=== PATIENT | male | born 1940 | race Caucasian/White ===

== ENCOUNTER 2019-11-08 05:31 | Outpatient (CLI) | payer MEDICARE, OTHER ==
[2019-11-08 14:00] LABS: Hemoglobin 15.9 g/dL (14.0-18.0)
[2019-11-08 14:13] LABS: Anion Gap 12 mmol/L (10-20); BUN (Urea Nitrogen) 33 mg/dL (8.4-25.7); Calc. Creatinine Clearance 0 mL/min (70-130); Calcium 10.1 mg/dL (7.8-10.44); Carbon Dioxide 28 mmol/L (23-31); Chloride 104 mmol/L (98-107); Estimated GFR-MDRD 35; Glucose 130 mg/dL (83-110); Potassium 5.2 mmol/L (3.5-5.1); Sodium 139 mmol/L (136-145)
[2019-11-09 14:45] LABS: SARS-CoV-2 MS2 Positive; SARS-CoV-2 N Gene Negative; SARS-CoV-2 S Gene Negative; SARS-CoV-2 by NAA Not Detected (NotDetected); SARS-CoV-2 orf1ab Negative
== END 2019-11-08 05:32 | disposition home or self-care (01) ==
LOC: LABBT 05:31
PROVIDERS: ATTEND Otolaryngology Plastic Surgery within the Head & Neck
DX: Z01.818 Encounter for other preprocedural examination (principal); Z11.59 Encounter for screening for other viral diseases; K11.1 Hypertrophy of salivary gland; R22.1 Localized swelling, mass and lump, neck
CPT/HCPCS: 80048; 85014; 85018; 93005; U0003; 87635; 93010

== ENCOUNTER 2019-11-13 07:23 | Day surgery (SDC) | payer MEDICARE ==
[2019-11-11 09:12] VITALS: BMI 29.0
[2019-11-13] MEDS ORDERED: Lidocaine 1% w/Epinephrine 1:100K 20 ML VIAL ONE (09:33)
[2019-11-13] MEDS ORDERED: Bacitracin Zinc Ointment 30 gm TUBE ONE (09:33)
[2019-11-13] MEDS ORDERED: Fentanyl 250 MCG/5 ML VIAL ONE (09:48)
[2019-11-13] MEDS ORDERED: PHENYLEPHRINE-NS 100 MCG/ML 10 ML SYRINGE ONE (10:35)
[2019-11-13] MEDS ORDERED: Succinylcholine Chloride 20 MG/ML 10 ml SYRINGE FS ONE (10:35)
[2019-11-13] MEDS ORDERED: Dexamethasone 20 MG/5 ML VIAL ONE (10:35)
[2019-11-13] MEDS ORDERED: PROPOFOL 200 MG/20 ML VIAL ONE (10:35)
[2019-11-13] MEDS ORDERED: Lidocaine 1% PF 5 ML VIAL ONE (10:35)
[2019-11-13] MEDS ORDERED: EPHEDRINE 25 MG/5 ML SYRINGE ONE (10:35)
[2019-11-13] MEDS ORDERED: Ondansetron PF 4 MG/2 ML Vial ONE (10:35)
[2019-11-13] MEDS ORDERED: Rocuronium Bromide 10 MG/ML (10ML VIAL) ONE (10:35)
[2019-11-13] MEDS ORDERED: Fentanyl 100 MCG/2 ML VIAL ONE ×2 (12:45→13:27)
[2019-11-13] MEDS ORDERED: Hydrocodone-Acetamin 15 ML UDCUP ONE (15:19)
--- NOTE | 2019-11-14 18:03 | OP ---
DATE OF PROCEDURE: 11/13/2019 PREOPERATIVE DIAGNOSIS: Right parotid gland mass. POSTOPERATIVE DIAGNOSIS: Right parotid gland mass. PROCEDURE PERFORMED: Right superficial parotidectomy with intraoperative facial nerve monitoring. ESTIMATED BLOOD LOSS: 20 mL. COMPLICATIONS: None. ANESTHESIA: GETA. DESCRIPTION OF PROCEDURE: The patient was taken to the operating room and placed supine on the table. General endotracheal anesthesia was obtained by the Anesthesia Staff. Tube was secured in the left lower lip. A shoulder roll was placed and the patient's head was turned in gentle extension exposing the right parotid gland and the right neck area. Following this, the patient was prepped and draped in standard surgical fashion. Following this, 8 mL of 1% lidocaine with 1:100,000 epinephrine was injected into the anticipated modified José Miguel incision line. Following this, an incision was made using a 15 blade through skin and subcutaneous tissue. A fat up and fat down flap were elevated over the parotid gland area and then was extended to a subplatysmal layer over the neck. Following this, the gland was released from the sternocleidomastoid muscle. It was noted that the mass was two separate masses, one in the midportion of the parotid extending into the tail of the parotid and a second much lower extending almost into the submandibular area. There is excessive scar tissue in this area and portions of the sternocleidomastoid muscle fibers were removed along with the mass. Following this, the mass was elevated and dissection was carried down the tragal cartilage into the stylomastoid foramen. The facial nerve was identified and was dissected laterally until the superior division and inferior division was identified. Dissecting along the inferior division, freed the mass from this area. The inferior marginal mandibular nerve and lower facial nerves were adherent to the masses as there was excessive scar tissue connecting the two masses. Careful dissection preserved the lower facial branches while removing the masses. The lower facial nerve division was strictly adherent to the parotid gland masses. Following this, a normal cuff of tissue was allowed to be removed around the superior portions of the masses and the masses were removed and sent for pathological analysis. Following this, the wound was irrigated. Hemostasis was obtained and the wound was closed after a drain was placed. The stitches used were 3-0 Monocryl, 4-0 Monocryl stitches and 4-0 and 5-0 Prolene stitches were placed to close the skin. Prior to beginning the procedure, the facial nerve monitor was inserted into the orbicularis oculi and orbicularis francis muscles. The facial nerve monitor was turned on at the beginning of the procedure and remained on with an observer throughout the procedure. The patient tolerated the procedure well. Job ID: [id number]
== END 2019-11-13 16:05 | disposition home or self-care (01) ==
LOC: SDC 07:23
PROVIDERS: ATTEND Otolaryngology Plastic Surgery within the Head & Neck
PROC: 0CB80ZZ Excision of Right Parotid Gland, Open Approach (ICD-10-PCS; principal; 2019-11-13)
DX: D11.0 Benign neoplasm of parotid gland (principal); I12.9 Hypertensive chronic kidney disease with stage 1 through stage 4 chronic kidney disease, or unspecified chronic kidney disease; E11.22 Type 2 diabetes mellitus with diabetic chronic kidney disease; N18.3 Chronic kidney disease, stage 3 (moderate); E78.5 Hyperlipidemia, unspecified; I25.2 Old myocardial infarction; K21.9 Gastro-esophageal reflux disease without esophagitis; I25.10 Atherosclerotic heart disease of native coronary artery without angina pectoris; F17.200 Nicotine dependence, unspecified, uncomplicated; Z79.82 Long term (current) use of aspirin; Z79.899 Other long term (current) drug therapy; Z90.5 Acquired absence of kidney
CPT/HCPCS: 88307; J1100; J2405; J2704; J3010

== ENCOUNTER 2020-10-21 08:59 | Day surgery (SDC) | payer MEDICARE ==
[2020-10-20 15:05] VITALS: BMI 27.3
[2020-10-21] MEDS ORDERED: Bacitracin Zinc Ointment 30 gm TUBE ONE (10:58)
[2020-10-21] MEDS ORDERED: Lidocaine 1% w/Epinephrine 1:100K 20 ML VIAL ONE (10:58)
[2020-10-21] MEDS ORDERED: Fentanyl 100 MCG/2 ML VIAL ONE ×2 (12:24→14:41)
[2020-10-21] MEDS ORDERED: Lidocaine 4% Topical Sol 50 ML BOT ONE (13:01)
[2020-10-21] MEDS ORDERED: Phenylephrine 10 MG/ML VIAL ONE (13:06)
[2020-10-21] MEDS ORDERED: Succinylcholine 200 MG/10 ml SYRINGE FS ONE (13:08)
[2020-10-21] MEDS ORDERED: Lidocaine 1% PF 5 ML VIAL ONE (13:08)
[2020-10-21] MEDS ORDERED: PROPOFOL 200 MG/20 ML VIAL ONE (13:08)
[2020-10-21] MEDS ORDERED: Ondansetron PF 4 MG/2 ML Vial ONE (13:08)
[2020-10-21] MEDS ORDERED: PHENYLEPHRINE-NS 100 MCG/ML 10 ML SYRINGE ONE (13:08)
[2020-10-21] MEDS ORDERED: ePHEDrine Sulfate 50 MG/10 ML VIAL ONE (13:08)
== END 2020-10-21 17:51 | disposition home or self-care (01) ==
LOC: SDC 08:59
PROVIDERS: ATTEND Otolaryngology Plastic Surgery within the Head & Neck
PROC: 0CB80ZZ Excision of Right Parotid Gland, Open Approach (ICD-10-PCS; principal; 2020-10-21)
DX: D11.0 Benign neoplasm of parotid gland (principal); I25.2 Old myocardial infarction; E78.00 Pure hypercholesterolemia, unspecified; I25.10 Atherosclerotic heart disease of native coronary artery without angina pectoris; I12.9 Hypertensive chronic kidney disease with stage 1 through stage 4 chronic kidney disease, or unspecified chronic kidney disease; E11.22 Type 2 diabetes mellitus with diabetic chronic kidney disease; N18.30 Chronic kidney disease, stage 3 unspecified; K59.09 Other constipation; K21.9 Gastro-esophageal reflux disease without esophagitis; H69.80 Other specified disorders of Eustachian tube, unspecified ear; Z79.82 Long term (current) use of aspirin; Z79.899 Other long term (current) drug therapy; Z98.890 Other specified postprocedural states; Z90.5 Acquired absence of kidney; Z90.49 Acquired absence of other specified parts of digestive tract
CPT/HCPCS: 88307; J2370; J2405; J2704; J3010